=== PATIENT | male | born 1985 ===

== ENCOUNTER 2020-09-30 12:58 | Emergency (ER) | payer SELFPAY ==
[~2020-09-30] VITALS: Ht 188 cm; Wt 112.8 kg
[2020-09-30 13:21] VITALS: BP 116/77
--- NOTE | 2020-09-30 16:04 | NUR ---
SENIOR APPLICATION SECURITY CONSULTANT NOTE: PT NOT IN LOBBY WHEN CALLED X 3, PT ELOPED.
== END 2020-09-30 16:05 | disposition left against medical advice (07) ==
LOC: ED 14:43
DX: B34.9 Viral infection, unspecified (principal)
CPT/HCPCS: 99281

== ENCOUNTER 2021-07-22 02:15 | Emergency (ER) | payer BC ==
[~2021-07-22] VITALS: Ht 188 cm; Wt 115.5 kg
[2021-07-22] MEDS ORDERED: METHOCARBAMOL 750 MG TABLET PO ONE (02:30)
[2021-07-22] MEDS ORDERED: IBUPROFEN 800 MG TABLET PO ONE (02:30)
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
--- NOTE | 2021-07-22 05:38 | NUR ---
ERP at bedside.
--- NOTE | 2021-07-22 05:49 | NUR ---
patient discharged with prescriptions and instruction. verbalized understanding.
[2021-07-22 05:55] VITALS: BP 123/78
== END 2021-07-22 05:57 | disposition home or self-care (01) ==
LOC: ED 05:50
DX: S16.1XXA Strain of muscle, fascia and tendon at neck level, initial encounter (principal); M54.6 Pain in thoracic spine; V49.49XA Driver injured in collision with other motor vehicles in traffic accident, initial encounter; Y93.89 Activity, other specified; Y92.89 Other specified places as the place of occurrence of the external cause; Y99.8 Other external cause status
CPT/HCPCS: 99283